=== PATIENT | male | born 1955 | race Caucasian/White ===

== ENCOUNTER 2019-04-21 18:30 | Inpatient (IN) | payer OTHER ==
[2019-04-21] MEDS: traMADol 50 MG TAB PO (19:26)
[2019-04-21] MEDS: KETOROLAC 30 MG INJ IM (19:27)
[2019-04-21 20:41] LABS: ADD MAN DIFF? NO
[2019-04-21 20:42] LABS: BASOPHIL # 0.1 10^3/ul (0.0-0.1); EOSINOPHILS # 0.1 10^3/ul (0.0-0.5); HEMATOCRIT 40.8 % (42.0-52.0); HEMOGLOBIN 13.9 g/dl (14.0-18.0); LYMPHOCYTES # 2.1 10^3/ul (0.8-2.9); LYMPHOCYTES % 25.8 % (15.0-51.0); MEAN CORPUSCULAR HEMOGLOBIN 30.8 pg (29.0-33.0); MEAN CORPUSCULAR HGB CONC 34.1 g/dl (32.0-37.0); MEAN CORPUSCULAR VOLUME 90.5 fl (82.0-101.0); MEAN PLATELET VOLUME 8.8 fl (7.4-10.4); MONOCYTE # 0.6 10^3/ul (0.3-0.9); MONOCYTES % 7.7 % (0.0-11.0); NEUTROPHIL # 5.2 10^3/ul (1.6-7.5); NEUTROPHILS % 64.1 % (39.0-77.0); PLATELET COUNT 229 10^3/UL (140-415); RED BLOOD COUNT 4.51 10^6/ul (4.70-6.10); RED CELL DISTRIBUTION WIDTH 12.6 % (11.5-14.5)
[2019-04-21 20:42] LABS: WHITE BLOOD COUNT 8.1 10^3/ul (4.8-10.8)
[2019-04-21] MEDS ORDERED: ONDANSETRON 4 MG INJ (20:49)
[2019-04-21] MEDS: ONDANSETRON 4 MG INJ IV (20:55)
[2019-04-21] MEDS: morphine 4 MG/ML VIAL IV (20:56)
[2019-04-21 21:03] LABS: INR 0.89; PROTIME 12.1 Sec (11.9-14.9); PT RATIO 0.9
[2019-04-21 21:07] LABS: ALANINE AMINOTRANSFERASE 22 IU/L (13-69); ALBUMIN 4.4 g/dl (3.3-4.9); ALBUMIN/GLOBULIN RATIO 1.12; ALKALINE PHOSPHATASE 107 IU/L (42-121); ANION GAP 13 (5-13); BILIRUBIN,INDIRECT 0.7 mg/dl (0-1.1); BILIRUBIN,TOTAL 0.7 mg/dl (0.2-1.3); BLOOD UREA NITROGEN 9 mg/dl (7-20); CARBON DIOXIDE 23 mmol/L (21-31); CHLORIDE 101 mmol/L (97-110); CREATININE 0.78 mg/dl (0.61-1.24); Estimated GFR > 60 mL/min (>60); GLUCOSE 101 mg/dl (70-220); SODIUM 137 mmol/L (135-144); TOTAL PROTEIN 8.3 g/dl (6.1-8.1)
[2019-04-21 21:08] LABS: ASPARTATE AMINO TRANSFERASE 31 IU/L (15-46); CALCIUM 9.5 mg/dl (8.4-10.2)
[2019-04-21] MEDS: HYDROmorphONE 2 MG/ML SYG IV (21:24)
[2019-04-21] MEDS ORDERED: ACETAMINOPHEN 325 MG TAB PO (21:30)
[2019-04-21] MEDS ORDERED: ONDANSETRON 4 MG INJ IV (21:30)
[2019-04-22] MEDS ORDERED: ALBUTEROL/IPRATROPIUM (NEB) 3 ML AMP HHN (02:00)
[2019-04-22] MEDS ORDERED: NACL 0.9% 3 ML SYG IV (02:00)
[2019-04-22] MEDS ORDERED: ACETAMINOPHEN 325 MG TAB PO (02:00)
[2019-04-22 05:23] LABS: ADD MAN DIFF? NO
[2019-04-22 05:36] LABS: WHITE BLOOD COUNT 9.9 10^3/ul (4.8-10.8)
[2019-04-22 05:36] LABS: BASOPHIL # 0.1 10^3/ul (0.0-0.1); BASOPHILS % 0.7 % (0.0-2.0); EOSINOPHILS # 0.1 10^3/ul (0.0-0.5); HEMOGLOBIN 13.1 g/dl (14.0-18.0); LYMPHOCYTES # 2.4 10^3/ul (0.8-2.9); LYMPHOCYTES % 24.6 % (15.0-51.0); MEAN CORPUSCULAR HGB CONC 33.6 g/dl (32.0-37.0); MEAN CORPUSCULAR VOLUME 92.2 fl (82.0-101.0); MEAN PLATELET VOLUME 9.5 fl (7.4-10.4); MONOCYTE # 0.7 10^3/ul (0.3-0.9); MONOCYTES % 7.3 % (0.0-11.0); NEUTROPHIL # 6.5 10^3/ul (1.6-7.5); NEUTROPHILS % 66.1 % (39.0-77.0); PLATELET COUNT 202 10^3/UL (140-415); RED BLOOD COUNT 4.23 10^6/ul (4.70-6.10); RED CELL DISTRIBUTION WIDTH 12.8 % (11.5-14.5)
[2019-04-22 06:19] LABS: ALANINE AMINOTRANSFERASE 19 IU/L (13-69); ALBUMIN 3.7 g/dl (3.3-4.9); ALBUMIN/GLOBULIN RATIO 1.12; ALKALINE PHOSPHATASE 95 IU/L (42-121); ANION GAP 6 (5-13); ASPARTATE AMINO TRANSFERASE 28 IU/L (15-46); BLOOD UREA NITROGEN 10 mg/dl (7-20); CALCIUM 9.2 mg/dl (8.4-10.2); CARBON DIOXIDE 28 mmol/L (21-31); CHLORIDE 103 mmol/L (97-110); CREATININE 0.81 mg/dl (0.61-1.24); Estimated GFR > 60 mL/min (>60); GLUCOSE 98 mg/dl (70-220); MAGNESIUM 2.2 mg/dl (1.7-2.5); PHOSPHORUS 3.9 mg/dl (2.5-4.9); POTASSIUM 4.9 mmol/L (3.5-5.1); SODIUM 137 mmol/L (135-144)
[2019-04-22] MEDS: morphine 2 MG INJ IV ×2 (07:36→21:06)
[2019-04-22] MEDS: HEPARIN 5,000 UNIT/1 ML VIAL SC (09:02)
[2019-04-22] MEDS: HYDROCODONE/APAP (5/325) TAB PO ×2 (17:49→23:59)
[2019-04-22] MEDS: ONDANSETRON 4 MG INJ IV (21:07)
[2019-04-23 05:18] LABS: ADD MAN DIFF? NO
[2019-04-23] MEDS: morphine 2 MG INJ IV ×2 (05:19→09:20)
[2019-04-23 05:22] LABS: BASOPHIL # 0.1 10^3/ul (0.0-0.1); BASOPHILS % 1.1 % (0.0-2.0); EOSINOPHILS # 0.2 10^3/ul (0.0-0.5); EOSINOPHILS % 2.7 % (0.0-7.0); HEMATOCRIT 39.1 % (42.0-52.0); HEMOGLOBIN 12.6 g/dl (14.0-18.0); LYMPHOCYTES # 2.1 10^3/ul (0.8-2.9); LYMPHOCYTES % 31.8 % (15.0-51.0); MEAN CORPUSCULAR HEMOGLOBIN 30.5 pg (29.0-33.0); MEAN CORPUSCULAR HGB CONC 32.2 g/dl (32.0-37.0); MEAN CORPUSCULAR VOLUME 94.7 fl (82.0-101.0); MEAN PLATELET VOLUME 9.3 fl (7.4-10.4); MONOCYTE # 0.7 10^3/ul (0.3-0.9); MONOCYTES % 10.3 % (0.0-11.0); NEUTROPHIL # 3.5 10^3/ul (1.6-7.5); NEUTROPHILS % 53.6 % (39.0-77.0); PLATELET COUNT 195 10^3/UL (140-415); RED BLOOD COUNT 4.13 10^6/ul (4.70-6.10)
[2019-04-23 05:22] LABS: WHITE BLOOD COUNT 6.6 10^3/ul (4.8-10.8)
[2019-04-23 06:37] LABS: ANION GAP 5 (5-13); BLOOD UREA NITROGEN 14 mg/dl (7-20); CARBON DIOXIDE 31 mmol/L (21-31); CHLORIDE 104 mmol/L (97-110); CREATININE 0.89 mg/dl (0.61-1.24); Estimated GFR > 60 mL/min (>60); GLUCOSE 101 mg/dl (70-220); MAGNESIUM 2.2 mg/dl (1.7-2.5); POTASSIUM 4.9 mmol/L (3.5-5.1); SODIUM 140 mmol/L (135-144)
[2019-04-23] MEDS ORDERED: NEOSTIGMINE 3 MG/3 ML SYRINGE (15:29)
[2019-04-23] MEDS ORDERED: ROCURONIUM 50 MG INJ (15:29)
[2019-04-23] MEDS ORDERED: CEFAZOLIN 1 GM INJ (15:29)
[2019-04-23] MEDS ORDERED: PROPOFOL 20 ML (15:29)
[2019-04-23] MEDS ORDERED: GLYCOPYRROLATE 0.4 MG INJ (15:29)
[2019-04-23] MEDS ORDERED: MIDAZOLAM 1 MG/ML 2 ML INJ (15:30)
[2019-04-23] MEDS ORDERED: FENTAnyl 50 MCG/ML VIAL (15:30)
[2019-04-23] MEDS ORDERED: ONDANSETRON 4 MG INJ (15:31)
[2019-04-23] MEDS ORDERED: DEXAMETHASONE 4 MG/ML 5 ML INJ (15:31)
[2019-04-23] MEDS ORDERED: morphine SULFATE/PF (10 MG/10 ML) INJ (16:36)
[2019-04-23] MEDS: POLYMYXIN/BACITRACIN 1L IRRIG (17:27)
[2019-04-23] MEDS ORDERED: MIDAZOLAM 1 MG/ML 2 ML INJ IV (17:30)
[2019-04-23] MEDS ORDERED: NALOXONE (0.4 MG/ML) INJ IV (17:30)
[2019-04-23] MEDS ORDERED: hydrALAzine 20 MG INJ IV (17:30)
[2019-04-23] MEDS ORDERED: LABETALOL HCL 20MG INJ IV (17:30)
[2019-04-23] MEDS ORDERED: MEPERIDINE 25 MG INJ IV (17:30)
[2019-04-23] MEDS ORDERED: OXYCODONE/ACETAMINOPHEN (5/325) TAB PO ×2 (17:30)
[2019-04-23] MEDS ORDERED: HYDROmorphONE 0.5 MG/0.5 ML SYG IV ×2 (17:30)
[2019-04-23] MEDS ORDERED: FENTAnyl 50 MCG/ML VIAL IV ×3 (17:30)
[2019-04-23] MEDS ORDERED: TRIMETHOBENZAMIDE 100 MG/ML VIAL IM ×2 (17:30)
[2019-04-23] MEDS ORDERED: ONDANSETRON 4 MG INJ IV ×2 (17:30)
[2019-04-23] MEDS ORDERED: DIPHENHYDRAMINE 50 MG INJ IV ×2 (17:30)
[2019-04-23] MEDS ORDERED: ALBUTEROL 0.083% (NEB) 2.5 MG/3 ML AMP HHN (17:30)
[2019-04-23] MEDS ORDERED: IPRATROPIUM (NEB) 0.5 MG/2.5 ML AMP HHN (17:30)
[2019-04-23] MEDS ORDERED: NALBUPHINE HCL (10 MG/1 ML) INJ IV (17:30)
[2019-04-23] MEDS ORDERED: HYDROmorphONE 1 MG/5 ML IV SYRINGE IV ×3 (17:30)
[2019-04-23] MEDS ORDERED: EPHEDrine 25 MG/5 ML SYG IV (17:30)
[2019-04-23] MEDS ORDERED: HYDROCODONE/APAP (10/325) TAB PO (19:30)
[2019-04-23] MEDS ORDERED: NACL 0.9% 3 ML SYG IV (19:30)
[2019-04-23] MEDS ORDERED: HYDROmorphONE 1 MG/ML SYG IV (19:30)
[2019-04-23 20:35] LABS: ADD MAN DIFF? NO
[2019-04-23 20:38] LABS: WHITE BLOOD COUNT 9.3 10^3/ul (4.8-10.8)
[2019-04-23 20:38] LABS: BASOPHILS % 0.4 % (0.0-2.0); EOSINOPHILS % 0.1 % (0.0-7.0); HEMATOCRIT 35.7 % (42.0-52.0); HEMOGLOBIN 11.8 g/dl (14.0-18.0); LYMPHOCYTES # 0.7 10^3/ul (0.8-2.9); LYMPHOCYTES % 7.3 % (15.0-51.0); MEAN CORPUSCULAR HGB CONC 33.1 g/dl (32.0-37.0); MEAN CORPUSCULAR VOLUME 93.7 fl (82.0-101.0); MEAN PLATELET VOLUME 9.1 fl (7.4-10.4); MONOCYTE # 0.2 10^3/ul (0.3-0.9); MONOCYTES % 1.8 % (0.0-11.0); NEUTROPHIL # 8.3 10^3/ul (1.6-7.5); NEUTROPHILS % 89.5 % (39.0-77.0); PLATELET COUNT 176 10^3/UL (140-415); RED BLOOD COUNT 3.81 10^6/ul (4.70-6.10); RED CELL DISTRIBUTION WIDTH 12.7 % (11.5-14.5)
[2019-04-23] MEDS: CEFAZOLIN 2 GM/50 ML (PMX) 50 ML IVPB (20:39)
[2019-04-23 20:43] LABS: ANION GAP 4 (5-13); BLOOD UREA NITROGEN 11 mg/dl (7-20); CALCIUM 8.9 mg/dl (8.4-10.2); CARBON DIOXIDE 30 mmol/L (21-31); CHLORIDE 103 mmol/L (97-110); CREATININE 0.87 mg/dl (0.61-1.24); Estimated GFR > 60 mL/min (>60); GLUCOSE 115 mg/dl (70-220); POTASSIUM 4.4 mmol/L (3.5-5.1); SODIUM 137 mmol/L (135-144)
[2019-04-23] MEDS: SOD CHLORIDE 0.9% 1,000 ML IV (20:55)
[2019-04-24] MEDS: CEFAZOLIN 2 GM/50 ML (PMX) 50 ML IVPB ×2 (03:59→12:55)
[2019-04-24 05:02] LABS: ADD MAN DIFF? NO
[2019-04-24 05:11] LABS: BASOPHILS % 0.2 % (0.0-2.0); HEMATOCRIT 33.9 % (42.0-52.0); HEMOGLOBIN 11.1 g/dl (14.0-18.0); LYMPHOCYTES # 0.7 10^3/ul (0.8-2.9); LYMPHOCYTES % 7.7 % (15.0-51.0); MEAN CORPUSCULAR HEMOGLOBIN 30.9 pg (29.0-33.0); MEAN CORPUSCULAR HGB CONC 32.7 g/dl (32.0-37.0); MEAN CORPUSCULAR VOLUME 94.4 fl (82.0-101.0); MEAN PLATELET VOLUME 9.5 fl (7.4-10.4); MONOCYTE # 0.4 10^3/ul (0.3-0.9); MONOCYTES % 4.3 % (0.0-11.0); NEUTROPHILS % 87.3 % (39.0-77.0); PLATELET COUNT 187 10^3/UL (140-415); RED BLOOD COUNT 3.59 10^6/ul (4.70-6.10); RED CELL DISTRIBUTION WIDTH 12.5 % (11.5-14.5)
[2019-04-24 05:11] LABS: WHITE BLOOD COUNT 9.1 10^3/ul (4.8-10.8)
[2019-04-24 05:53] LABS: ANION GAP 8 (5-13); BLOOD UREA NITROGEN 12 mg/dl (7-20); CALCIUM 8.8 mg/dl (8.4-10.2); CARBON DIOXIDE 27 mmol/L (21-31); CHLORIDE 105 mmol/L (97-110); Estimated GFR > 60 mL/min (>60); GLUCOSE 118 mg/dl (70-220); PHOSPHORUS 4.6 mg/dl (2.5-4.9); POTASSIUM 4.5 mmol/L (3.5-5.1); SODIUM 140 mmol/L (135-144)
[2019-04-24 06:08] LABS: PROSTATE SPECIFIC ANTIGEN 1.5 ng/ml (0.0-4.0)
[2019-04-24] MEDS: SOD CHLORIDE 0.9% 1,000 ML IV (08:00)
[2019-04-24] MEDS: HYDROCODONE/APAP (5/325) TAB PO ×3 (09:19→21:20)
[2019-04-24] MEDS: ENOXAPARIN 40 MG/0.4 ML SYG SC (09:20)
[2019-04-24] MEDS: BISACODYL (EC) 5 MG TAB PO (14:07)
[2019-04-24] MEDS: KETOROLAC 30 MG INJ IV (16:16)
[2019-04-25 04:59] LABS: ADD MAN DIFF? NO
[2019-04-25 05:09] LABS: BASOPHIL # 0.1 10^3/ul (0.0-0.1); BASOPHILS % 0.7 % (0.0-2.0); EOSINOPHILS % 0.5 % (0.0-7.0); HEMOGLOBIN 9.3 g/dl (14.0-18.0); LYMPHOCYTES # 1.9 10^3/ul (0.8-2.9); LYMPHOCYTES % 23.2 % (15.0-51.0); MEAN CORPUSCULAR HEMOGLOBIN 30.5 pg (29.0-33.0); MEAN CORPUSCULAR HGB CONC 32.1 g/dl (32.0-37.0); MEAN CORPUSCULAR VOLUME 95.1 fl (82.0-101.0); MEAN PLATELET VOLUME 9.6 fl (7.4-10.4); MONOCYTES % 12.7 % (0.0-11.0); NEUTROPHIL # 5.1 10^3/ul (1.6-7.5); NEUTROPHILS % 62.5 % (39.0-77.0); PLATELET COUNT 162 10^3/UL (140-415); RED BLOOD COUNT 3.05 10^6/ul (4.70-6.10); RED CELL DISTRIBUTION WIDTH 12.7 % (11.5-14.5)
[2019-04-25 05:09] LABS: WHITE BLOOD COUNT 8.1 10^3/ul (4.8-10.8)
[2019-04-25 05:39] LABS: ANION GAP 2 (5-13); BLOOD UREA NITROGEN 18 mg/dl (7-20); CALCIUM 8.5 mg/dl (8.4-10.2); CARBON DIOXIDE 32 mmol/L (21-31); CHLORIDE 104 mmol/L (97-110); CREATININE 0.98 mg/dl (0.61-1.24); Estimated GFR > 60 mL/min (>60); GLUCOSE 119 mg/dl (70-220); POTASSIUM 4.8 mmol/L (3.5-5.1); SODIUM 138 mmol/L (135-144)
[2019-04-25] MEDS: HYDROCODONE/APAP (5/325) TAB PO ×2 (06:35→12:26)
[2019-04-25] MEDS: ENOXAPARIN 40 MG/0.4 ML SYG SC (09:09)
== END 2019-04-25 17:20 | disposition home health service (06) | DRG 470 ==
LOC: MS1 21:06 → FTE 18:30 → MS1 23:59
PROC: 0SRS01Z Replacement of Left Hip Joint, Femoral Surface with Metal Synthetic Substitute, Open Approach (ICD-10-PCS; principal; 2019-04-23 16:35)
DX: M80.052A Age-related osteoporosis with current pathological fracture, left femur, initial encounter for fracture (principal)
CPT/HCPCS: 36415; 71045; 73500; 73510; 73530; 73700; 80048; 80053; 83735; 84100; 84153; 84154; 85025; 85610; 85730; 88304; 88311; 93005; 96372; 96374; 96375; 97116; 97161; 97167; 97530; 99285-25